=== PATIENT | male | born 1935 | race Caucasian/White ===

== ENCOUNTER 2021-10-04 12:26 | Emergency (ER) | payer OTHER, SELFPAY ==
[2021-10-04 12:27] VITALS: BP 126/69; PULSE 65; RESP 18; TEMP 36.2; O2SAT 99; BMI 23.8
--- NOTE | 2021-10-04 13:32 | ED.RN ---
ADONIS at [facility] called and wanted to know if we replace regular peg tubes. She was advised that we do. She stated that she was sending a pt that had a pickard in place of a peg tube. Pt arrived and has a mushroom head peg tube surgically inserted. is here and upset that she wanted pt transferred to [place] which is where his surgeon is. Dr Shaw spoke to after talking to surgeon and explained that pt will have to be off of his coumadin for a couple days before having the surgery to replace it. Nurse at the facility is aware that he is coming back and will have this procedure done outpatient.
--- NOTE | 2021-10-04 13:41 | NURSING ---
CALLED [facility], TALKED TO KEN. ETA IS 45 TO 60
--- NOTE | 2021-10-04 13:48 | EX.ED.DYSGE1 ---
HPI History of Present Illness Chief Complaint: Wound Informant: patient and spouse/S.O. Narrative Narrative: Patient is an 86-year-old male with history of stroke with subsequent dysphagia and now PEG tube dependence and on chronic Coumadin therapy presenting for request of PEG tube change. Patient had a surgical PEG tube placed by Dr. Helton at [facility] 1 year ago. [facility] was black/discolored. It was recommended that he get switch. The called the on-call nurse for his surgeon who states that he is on-call this week at [place] so they can go to that emergency room to have this resolved. For what ever reason patient was brought to [place] emergency room instead. The tube is still flushing. No other complaints or concerns at this time. [facility] Medical History Acute respiratory failure Aphasia Atrial fibrillation Atrioventricular block, complete BPH (benign prostatic hyperplasia) Cardiac pacemaker Cerebral infarction Chronic pain Conductive hearing loss COPD (chronic obstructive pulmonary disease) Dysphagia Gastrostomy in place GERD (gastroesophageal reflux disease) Hammer toe Hemiplegia Hyperlipidemia Insomnia Major depressive disorder Muscle weakness MIMI (obstructive sleep apnea) Primary hypertension Restless leg syndrome Type 2 diabetes mellitus Unspecified convulsions Unsteadiness on feet Urinary incontinence Vascular dementia Weakness Home Medications acetaminophen 500 mg tablet 1,000 mg feeding tube TID 10/04/21 [History Last Taken Unknown] acetaminophen 650 mg rectal suppository 650 mg NM Q6H PRN pain/fever 10/04/21 [History Last Taken Unknown] aluminum-mag hydroxide-simethicone 200 mg-200 mg-20 mg/5 mL oral susp 30 ml feeding tube Q4H PRN PRN Indigestion 10/04/21 [History Last Taken Unknown] ammonium lactate 12 % topical cream 1 applic topical BID PRN Dry Skin 10/04/21 [History Last Taken Unknown] artificial tears solution eye drops 1 drp ophthalmic (eye) 4X/DAY 10/04/21 [History Last Taken Unknown] aspirin 81 mg tablet 81 mg DAILY 10/04/21 [History Last Taken Unknown] bisacodyl 10 mg rectal suppository (Dulcolax (bisacodyl)) 10 mg NM DAILY PRN Constipation 10/04/21 [History Last Taken Unknown] budesonide 0.5 mg/2 mL suspension for nebulization 0.25 mg inhalation BID 10/04/21 [History Last Taken Unknown] carboxymethylcellulose 0.5 %-glycerin 1 % (PF) eye drops,dropperette (Refresh Relieva PF) 1 drp EACH EYE QHS 10/04/21 [History Last Taken Unknown] carboxymethylcellulose sodium 1 % eye liquid gel drops (Refresh Liquigel) 1 drp EACH EYE PRN PRN Dry Eye(S) 10/04/21 [History Last Taken Unknown] docusate sodium 100 mg tablet 100 mg BID PRN Constipation 10/04/21 [History Last Taken Unknown] doxazosin 2 mg tablet 2 mg feeding tube QHS 10/04/21 [History Last Taken Unknown] fluticasone propionate 50 mcg/actuation nasal spray,suspension 2 spray intranasal DAILY PRN allergies 10/04/21 [History Last Taken Unknown] formoterol fumarate 20 mcg/2 mL solution for nebulization 20 mcg inhalation BID 10/04/21 [History Last Taken Unknown] furosemide 40 mg tablet 40 mg feeding tube DAILY 10/04/21 [History Last Taken Unknown] glucagon HCl 1 mg solution for injection (Glucagon (HCl) Emergency Kit) 1 mg subcut Q20M PRN Hypoglycemia 10/04/21 [History Last Taken Unknown] guaifenesin 100 mg tablet 100 mg BID 10/04/21 [History Last Taken Unknown] hyoscyamine sulfate 0.125 mg tablet (Levsin) 0.125 mg feeding tube 4X/DAY PRN PRN Secretions 10/04/21 [History Last Taken Unknown] insulin lispro 100 unit/mL subcutaneous pen (Humalog KwikPen (U-100) Insulin) 0 unit subcut DAILY 10/04/21 [History Last Taken Unknown] ipratropium 0.5 mg-albuterol 3 mg (2.5 mg base)/3 mL nebulization soln 3 ml inhalation Q4H PRN sob 10/04/21 [History Last Taken Unknown] isosorbide dinitrate 10 mg tablet 10 mg feeding tube TID 10/04/21 [History Last Taken Unknown] lactose-reduced food with fiber oral liquid 250 ml feeding tube 4X/DAY 10/04/21 [History Last Taken Unknown] lamotrigine 25 mg tablet (Lamictal) 50 mg feeding tube BID 10/04/21 [History Last Taken Unknown] loratadine 10 mg tablet 10 mg feeding tube QHS 10/04/21 [History Last Taken Unknown] magnesium hydroxide 400 mg/5 mL oral suspension (Milk of Magnesia) 30 ml feeding tube DAILY PRN Constipation 10/04/21 [History Last Taken Unknown] melatonin 3 mg capsule 3 mg QHS 10/04/21 [History Last Taken Unknown] metformin 500 mg tablet 500 mg feeding tube BID 10/04/21 [History Last Taken Unknown] metoprolol tartrate 25 mg tablet 12.5 mg feeding tube BID 10/04/21 [History Last Taken Unknown] morphine 20 mg/5 mL (4 mg/mL) oral solution 4 mg PO Q4H PRN pain/sob 10/04/21 [History Last Taken Unknown] nitroglycerin 0.4 mg sublingual tablet (Nitrostat) 0.4 mg sublingual Q5M PRN Chest Pain 10/04/21 [History Last Taken Unknown] omeprazole 40 mg capsule,delayed release 40 mg feeding tube DAILY 10/04/21 [History Last Taken Unknown] ondansetron HCl 4 mg tablet 4 mg feeding tube Q6H PRN Nausea 10/04/21 [History Last Taken Unknown] sennosides 8.8 mg/5 mL oral syrup (senna) 8.8 mg feeding tube QODAY 10/04/21 [History Last Taken Unknown] sertraline 25 mg tablet (Zoloft) 25 mg feeding tube QHS 10/04/21 [History Last Taken Unknown] tamsulosin 0.4 mg capsule 0.8 mg QHS 10/04/21 [History Last Taken Unknown] warfarin 4 mg tablet 4 mg feeding tube TUTHSA 10/04/21 [History Last Taken Unknown] warfarin 5 mg tablet 5 mg feeding tube SUMOWEFR 10/04/21 [History Last Taken Unknown] Allergy/AdvReac Type Severity Reaction Status Date / Time aspartame Allergy Other Verified 10/04/21 12:35 bethanechol Allergy Other Verified 10/04/21 12:35 carbamazepine Allergy Other Verified 10/04/21 12:35 dextromethorphan Allergy Other Verified 10/04/21 12:35 mirtazapine Allergy Other Verified 10/04/21 12:35 quetiapine Allergy Other Verified 10/04/21 12:35 Social History Smoking Status: Never smoker ROS ROS ED Constitutional Constitutional ED: Denies chills or fever(s) Eyes Eyes: Denies change in vision ENT ENT ED: Denies sore throat Cardiovascular Cardiovascular: Denies chest pain Respiratory/Chest Respiratory/Chest: Denies cough or dyspnea Gastrointestinal Gastrointestinal: Reports constipation; Denies abdominal pain or vomiting Musculoskeletal Musculoskeletal: Denies arthralgias or myalgias Integumentary Denies rash Neurologic Neurologic: Reports other Details: Prior deficits from stroke ; Denies headache(s) Hematologic/Lymphatic Hematologic/Lymphatic: Reports easy bleeding and easy bruising EXAM Physical Exam Const Vital Signs: 10/04/21 12:27 Temperature 97.1 F L Temperature Source Temporal Pulse Rate 65 Respiratory Rate 18 Blood Pressure 126/69 H Blood Pressure Mean 88 Pulse Ox 99 Oxygen Delivery Method Room Air Positive well nourished and well developed General Appearance ED: well developed and NAD HEENT Reports moist mucous membranes HEENT Narrative: Right-sided facial droop Eyes PERRL and EOMs intact bilaterally Neck supple Chest Wall inspection of chest normal Resp normal respiratory effort and clear to auscultation bilaterally Cardio regular rate, regular rhythm and no murmurs GI normal to inspection, nondistended, normoactive bowel sounds and non-tender GI Narrative: PEG tube in place in the epigastric region. No surrounding drainage or erythema from the tube site. The tube is discolored/black and there is no balloon to deflate it. The tube flushes. Extremity normal to inspection General Extremety ED: Negative for tenderness Neuro Neuro Narrative: Slurred speech, chronic. Global weakness Sensorium / Orientation: alert Psych Mood & Affect: Negative for depressed or anxious Skin no wounds and skin turgor normal MDM MDM MDM Narrative Medical decision making narrative: Patient evaluated for concern of PEG tube needing change. This was a surgically placed PEG tube that does not have a balloon I can easily deflate and remove. He is anticoagulated on Coumadin. It is still flushing. While I agree that the tube should be removed and replaced with a clean 1, I do not think it needs to be switched out emergently as it is still functioning and patient has no acute complaints. Case is discussed with his surgeon, Dr. Helton, who is in agreement. He would like this to be scheduled through his office for outpatient surgery and the patient will need his Coumadin held for couple days in anticipation of this. is in agreement this plan. Patient be discharged back to the nursing facility. Plan of care was communicated to the patient's nursing facility as well. PEG tube is flushed in the emergency room to confirm that it is still functioning. 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) use of anticoagulants Prescriptions: No Action furosemide 40 mg Tablet 40 mg feeding tube DAILY isosorbide dinitrate 10 mg Tablet 10 mg feeding tube TID Rx Instructions: allow nitrate-free interval of 12-14 hrs per 24-hr period metformin 500 mg Tablet 500 mg feeding tube BID acetaminophen 650 mg Suppository 650 mg NM Q6H PRN (Reason: pain/fever) ipratropium-albuterol 0.5 mg-3 mg(2.5 mg base)/3 mL Solution For Nebulization 3 ml INHALATION Q4H PRN (Reason: sob) ondansetron HCl [Zofran] 4 mg Tablet 4 mg feeding tube Q6H PRN (Reason: Nausea) artificial tears solution Drops 1 drp OPHTHALMIC (EYE) 4X/DAY guaifenesin 100 mg Tablet 100 mg BID sennosides [senna] 8.8 mg/5 mL Syrup 8.8 mg feeding tube QODAY omeprazole 40 mg Capsule,Delayed Release(Dr/Ec) 40 mg feeding tube DAILY acetaminophen 500 mg Tablet 1,000 mg feeding tube TID warfarin [Coumadin] 4 mg Tablet 4 mg feeding tube TUTHSA lamotrigine [Lamictal] 25 mg Tablet 50 mg feeding tube BID magnesium hydroxide [Milk of Magnesia] 400 mg/5 mL Suspension 30 ml feeding tube DAILY PRN (Reason: Constipation) morphine 20 mg/5 mL (4 mg/mL) Solution 4 mg PO Q4H PRN (Reason: pain/sob) tamsulosin 0.4 mg Capsule 0.8 mg QHS bisacodyl [Dulcolax (bisacodyl)] 10 mg Suppository 10 mg NM DAILY PRN (Reason: Constipation) hyoscyamine sulfate [Levsin] 0.125 mg Tablet 0.125 mg feeding tube 4X/DAY PRN PRN (Reason: Secretions) warfarin [Coumadin] 5 mg Tablet 5 mg feeding tube SUMOWEFR nitroglycerin [Nitrostat] 0.4 mg Tablet, Sublingual 0.4 mg SUBLINGUAL Q5M PRN (Reason: Chest Pain) Rx Instructions: do not exceed 3 doses per episode sertraline [Zoloft] 25 mg Tablet 25 mg feeding tube QHS budesonide 0.5 mg/2 mL Suspension For Nebulization 0.25 mg INHALATION BID ammonium lactate 12 % Cream 1 applic TOPICAL BID PRN (Reason: Dry Skin) aspirin 81 mg Tablet 81 mg DAILY alum-mag hydroxide-simeth [Mylanta] 200-200-20 mg/5 mL Suspension 30 ml feeding tube Q4H PRN PRN (Reason: Indigestion) fluticasone propionate 50 mcg/actuation [place],Suspension 2 spray INTRANASAL DAILY PRN (Reason: allergies) Rx Instructions: administer into each nostril docusate sodium 100 mg Tablet 100 mg BID PRN (Reason: Constipation) loratadine 10 mg Tablet 10 mg feeding tube QHS doxazosin 2 mg Tablet 2 mg feeding tube QHS carboxymethylcellulose sodium [Refresh Liquigel] 1 % Drops, Liquid Gel 1 drp EACH EYE PRN PRN (Reason: Dry Eye(S)) insulin lispro [Humalog KwikPen Insulin] 100 unit/mL Insulin Pen 0 unit SUBCUT DAILY Isosource 1.5 Kei Liquid 250 ml feeding tube 4X/DAY metoprolol tartrate 25 mg Tablet 12.5 mg feeding tube BID formoterol fumarate 20 mcg/2 mL Solution For Nebulization 20 mcg INHALATION BID melatonin 3 mg Capsule 3 mg QHS Glucagon (HCl) Emergency Kit 1 mg Recon Soln 1 mg SUBCUT Q20M PRN (Reason: Hypoglycemia) Rx Instructions: until target blood sugar attained Refresh Relieva PF 0.5-1 % Dropperette 1 drp EACH EYE QHS Primary Care Provider: Rodrick Leary Referrals: Rodrick Leary DO [Primary Care Provider] - Activity Restrictions/Additional Instructions: Please call Kip's surgeon to scheduled outpatient procedure to have his PEG tube removed. His Coumadin will need to be held a couple days in advance. Given that it is still functioning, this does not need to be switched out emergently today. Disposition Disposition: Long Term Facility
[2021-10-04 13:58] VITALS: BP 120/69
--- NOTE | 2021-10-04 15:00 | NURSING ---
UPDATED CREW WILL BE ABOUT 40 MIN
== END 2021-10-04 16:20 | disposition skilled nursing facility (03) ==
PROVIDERS: Emergency Provider Emergency Medicine; PCP Family Medicine; Visit Provider Emergency Medicine
DX: Z43.1 Encounter for attention to gastrostomy (principal); Z93.1 Gastrostomy status; J44.9 Chronic obstructive pulmonary disease, unspecified; E11.9 Type 2 diabetes mellitus without complications; E78.5 Hyperlipidemia, unspecified; I10 Essential (primary) hypertension; Z79.01 Long term (current) use of anticoagulants; Z86.73 Personal history of transient ischemic attack (TIA), and cerebral infarction without residual deficits
CPT/HCPCS: 99284